=== PATIENT | female | born 1995 | race Two or more races ===

== ENCOUNTER 2021-05-13 18:16 | Emergency (ER) | payer BC, OTHER ==
[~2021-05-13] VITALS: Ht 165.1 cm; Wt 117.9 kg
[2021-05-13 21:11] LABS: Urine Bacteria NONE SEEN /hpf (None Seen); Urine Blood Negative /uL (Negative); Urine Specific Gravity 1.034 (1.001-1.035); Urine WBC 10 /hpf (0 - 5)
[2021-05-13 21:12] VITALS: BP 140/89
== END 2021-05-14 02:07 | disposition home or self-care (01) ==
LOC: ER 18:18
DX: E11.65 Type 2 diabetes mellitus with hyperglycemia (principal); Z88.8 Allergy status to other drugs, medicaments and biological substances
CPT/HCPCS: 81001; 81025; 93005